=== PATIENT | male | born 1985 | race Caucasian/White ===

== ENCOUNTER → 2019-08-16 14:55 | Outpatient (POV) | payer SELFPAY | PROVIDERS: Visit Provider Dermatology | DX: Z00.00 Encounter for general adult medical examination without abnormal findings (principal) ==

== ENCOUNTER → 2021-01-11 10:51 | Outpatient (CLI) | payer BC, SELFPAY | PROVIDERS: PCP Family Medicine; Visit Provider Family Medicine | DX: R00.0 Tachycardia, unspecified (principal) | CPT/HCPCS: 93225; 93226 ==

== ENCOUNTER → 2021-02-07 13:35 | Outpatient (CLI) | payer BC, SELFPAY | PROVIDERS: PCP Family Medicine; Visit Provider Nurse Practitioner Family | DX: G47.33 Obstructive sleep apnea (adult) (pediatric) (principal); R40.0 Somnolence; R06.83 Snoring | CPT/HCPCS: G0399 ==

== ENCOUNTER → 2021-02-08 10:10 | Outpatient (CLI) | payer BC, SELFPAY ==
--- NOTE | 2021-02-08 10:11 | CA_ITS ---
APPROVED REPORT EXAM: Comprehensive 2D, Doppler, and color-flow Echocardiogram Corn Grinder: Lisandra Gould CRT Ht: 5 ft 10 in Wt: 303lbs BSA: 2.49 BP: 144/83 mmHg Indications: Shortness of Breath, Palpitations, Fatigue, ASTER, SVT 2D Dimensions LVOT 2.00 cm (M/F) 1.5-2.5 LA Volume 47.40 mL LA Volume Index 19.00 mL/m2 (M/F) 16-34 M-Mode Dimensions RVDd 2.31 cm (0.9-2.6) LA Diam 4.06 cm (1.9-4.0) LVDd 4.45 cm (3.5-5.7) Ao Diam 4.45 cm (2.0-3.7) LVDs 2.81 cm (3.5-5.7) IVSd 1.49 cm (0.6-1.1) PWd 0.82 cm (0.6-1.1) EF (Teich) 66.90% FS 36.90% EDV (Teich) 90.10 mL TAPSE 1.48 (<1.7) ESV (Teich) 29.80 mL LV Diastology E Decel Time 193.00 (160-240 msec) E/A Ratio 0.61 MED E' 5.40 (< 7 cm/sec) MED A' 8.40 cm/s E'/MED E' Ratio 6.39 (>14) LAT E' 11.20 (<10 cm/sec) LAT A' 13.40 cm/s E/LAT E' Ratio 3.08 (>14) Aortic Valve AO Peak GR. 4.30 mmHg Mitral Valve MV A Velocity 56.00 (40-130 cm/s) E/A Ratio 0.61 MV Decel. Time 193.00 (160-240 ms) Pulmonary Valve PV Peak Velocity 63.00 (50-150 cm/s) Tricuspid Valve TR P. Velocity 251.00 cm/s RAP Estimate 10.00 mmHg RVSP 35.30 mmHg Left Ventricle Left atrium is mildly enlarged, left ventricle is normal size, mild concentric left ventricular hypertrophy, visually estimated ejection fraction 50% with no regional wall motion abnormality, endocardial surfaces are poorly visualized, Doppler evidence of impaired LV relaxation seen. Right Ventricle Right atrium and right ventricle relatively normal size and function. Aortic Valve Aortic valve is minimally thickened and fibrosed, there is no aortic stenosis or aortic insufficiency. Mitral Valve Mitral valve grossly normal, there is trace mitral regurgitation. Tricuspid Valve Tricuspid grossly normal, there is trace tricuspid regurgitation, tricuspid regurgitation jet velocity is inadequate for calculation of the right ventricular systolic pressure. Pulmonic Valve Pulmonic valve is poorly visualized. Great Vessels Aortic root is normal size. Pericardium No significant pericardial effusion noted. Conclusion 1. Mildly enlarged left atrium, normal left ventricular size, mild concentric left ventricular hypertrophy, visually estimated ejection fraction 50% with no regional wall motion abnormality. Doppler evidence of impaired LV relaxation seen. 2. Trace mitral and tricuspid regurgitation. 3. No significant pericardial effusion noted. Electronically signed by : Chang Nava, 02/08/2021 13:32:31
== END ==
PROVIDERS: PCP Family Medicine; Visit Provider Nurse Practitioner Family
DX: R06.00 Dyspnea, unspecified (principal); R00.2 Palpitations; R00.0 Tachycardia, unspecified; R94.31 Abnormal electrocardiogram [ECG] [EKG]; G47.33 Obstructive sleep apnea (adult) (pediatric); R06.83 Snoring; R40.0 Somnolence
CPT/HCPCS: 93306

== ENCOUNTER 2023-09-10 15:39 | Emergency (ER) | payer BC, SELFPAY ==
[2023-09-10 15:55] VITALS: BP 122/66; PULSE 89; RESP 21; TEMP 36.6; O2SAT 96; BMI 41.5
[2023-09-10 16:23] VITALS: BP 122/66; PULSE 89; RESP 21; TEMP 36.6; O2SAT 96
--- NOTE | 2023-09-10 16:32 | EXP.UTC ---
Discharge Plan Disposition Patient Disposition: Home, Self-Care Condition: Good Prescriptions Prescriptions: New cephalexin 500 mg capsule 500 mg PO QID 7 Days Qty: 28 0RF No Action omeprazole 40 mg capsule,delayed release(DR/EC) 40 mg PO DAILY metoprolol succinate [Toprol XL] 50 mg tablet extended release 24 hr 100 mg PO DAILY Qty: 30 5RF cetirizine 10 mg tablet 10 mg PO DAILY Patient Comments: TAKE 1 TABLET BY MOUTH ONCE DAILY NEEDED FOR ALLERGIES bupropion HCl 150 mg tablet extended release 24 hr 150 mg PO DAILY Patient Comments: TAKE 1 TABLET BY MOUTH ONCE EVERY 24 HOURS Referrals Follow up/Referrals: Minnie Jain APRN [Primary Care Provider] - See instructions Activity Restrictions/Add. Instructions Additional Instructions/Restrictions: Take medication as prescribed Follow up with your Family Doctor if no improvement or any worsening of symptoms Return if needed Straight to ER if any life threatening symptoms Clinical Impressions Clinical Impression: Skin problem Instructions Patient Instructions: DI for Cellulitis -- Adult, Cephalexin Discharge ED Provider: Zahida Diallo [facility] General Stated complaint: bumps on legs Mode of Arrival: Ambulatory Source of Information: Patient Limitations: No Limitations Time Seen by Provider: 09/10/23 16:32 Description of Symptoms (Recalled from Triage Doc. by RN): PATIENT C/O REDDENED AREAS TO BILATERAL LEGS X 1 WEEK. HE STATES HE HAS A HISTORY OF THEM AND GETS TREATED FOR A BACTERIAL INFECTION HEENT Symptoms (Recalled from RN notes): No Resp Symptoms (Recalled from RN notes): No Skin Symptoms (Recalled from RN notes): Yes MS Symptoms (Recalled from RN notes): No Functional Status (Recalled from RN notes): WNL History of Present Illness Provider Complaint: Patient states that he has a red inflammed bump like area on his right lower leg and feels like one is starting on his left States that he use to get these frequently and had to get antibiotics to clear them up Related Data Home Medications Medication Instructions Recorded Confirmed omeprazole 40 mg capsule,delayed 40 mg PO DAILY 01/29/21 09/10/23 release bupropion HCl 150 mg 24 hr tablet, 150 mg PO DAILY 09/10/23 09/10/23 extended release cetirizine 10 mg tablet 10 mg PO DAILY 09/10/23 09/10/23 Previous Rx's Medication Instructions Recorded metoprolol succinate 50 mg 100 mg PO DAILY #30 tabs 02/14/21 tablet,extended release 24 hr (Toprol XL) cephalexin 500 mg capsule 500 mg PO QID 7 days #28 caps 09/10/23 Allergies Allergy/AdvReac Type Severity Reaction Status Date / Time No Known Allergies Allergy Verified 01/29/21 13:34 Worker's Comp Is this a Worker's Comp case?: No [facility] Disclaimer: The information contained in this section may have been updated after the patient was seen, as this information can be updated by other users. Medical History (Updated 09/10/23 @ 16:41 by Zahida Diallo APRN) Abnormal EKG Daytime somnolence Dyspnea ASTER (obstructive sleep apnea) Palpitations Snoring Tachycardia Social History Smoking Status: Former smoker alcohol intake: current current occupational status: employed and disabled Travel in the last 8 weeks: Inside the [place] ROS Obtained: Yes All systems reviewed & no additional complaints except as documented and Yes Systems reviewed as appropriate & no additional complaints except as documented Constitutional Constitutional: Reports system reviewed and no additional complaints, except as documented and Reports as per HPI ENT Ears, Nose, Mouth, and Throat: Reports system reviewed and no additional complaints, except as documented and Reports as per HPI Cardiovascular Cardiovascular: Reports system reviewed and no additional complaints, except as documented and Reports as per HPI Respiratory Respiratory: Reports system reviewed and no additional complaints,
== END 2023-09-10 16:45 | disposition home or self-care (01) ==
PROVIDERS: Emergency Provider Nurse Practitioner; PCP Nurse Practitioner Family
DX: L98.9 Disorder of the skin and subcutaneous tissue, unspecified (principal)
CPT/HCPCS: 99204; 99212; G0463

== ENCOUNTER 2023-10-30 16:15 | Outpatient (CLI) | payer BC, SELFPAY ==
[2023-10-30 16:50] LABS: Basophils # 0.1 K/mm3 (0-0.2); Basophils % 0.9 % (0.1-2.0); Eosinophils # 0.2 K/mm3 (0.0-0.4); Eosinophils % 1.8 % (0.1-12.0); Hemoglobin 16.6 g/dL (14.1-18.0); Lymphocytes # 2.7 K/mm3 (0.7-4.5); Lymphocytes % 28.2 % (10-50); Mean Corpuscular HGB Conc 36.9 g/dL (31.8-35.4); Mean Corpuscular Hemoglobin 32.1 pg (27.0-31.2); Mean Corpuscular Volume 87.1 fl (80-94); Mean Platelet Volume 10.2 fl (7.4-10.4); Monocytes # 0.5 K/mm3 (0.1-1.0); Platelet Count 204 K/mm3 (142-424); Red Blood Count 5.16 M/mm3 (4.60-6.20); White Blood Count 9.4 K/mm3 (4.8-10.8)
[2023-10-30 17:10] LABS: Chloride 103 mmol/L (98-107); Potassium 4.7 mmoL/L (3.5-5.1); Sodium 141 mmol/L (136-145)
[2023-10-30 17:13] LABS: Alanine Aminotransferase 58 U/L (12-78); Albumin Level 4.8 g/dl (3.5-5.0); Albumin/Globulin Ratio 1.8 (1.1-1.8); Alkaline Phosphatase 67 U/L (38-126); Anion Gap 11.7 mEq/L (5-15); Aspartate Amino Transferase 43 U/L (17-59); Bilirubin,Total 0.6 mg/dl (0.2-1.3); Blood Urea Nitrogen 20 mg/dl (9-20); Calcium 9.7 mg/dl (8.4-10.2); Carbon Dioxide 31 mmol/L (22.0-30.0); Estimated Glomerular Filt Rate 95 ml/min (>60); GFR (African American) 115 ML/MIN (>60); Globulin 2.6 g/dL (1.3-3.2); Glucose 110 mg/dl (74-100); Total Protein,Serum 7.4 g/dl (6.3-8.2)
[2023-10-30 17:20] LABS: C-Reactive Protein 1.3 mg/L (0-4)
[2023-10-30 17:22] LABS: Erythrocyte Sedimentation Rate 3 mm/hr (0-15)
[2023-10-30 17:45] LABS: Thyroid Stimulating Hormone 1.16 uIU/mL (0.465-4.68)
[2023-11-04 09:07] LABS: Antinuclear Antibodies (ANA) Negative
== END 2023-10-30 23:59 ==
LOC: LAB 16:17
PROVIDERS: PCP Nurse Practitioner Family; Visit Provider Nurse Practitioner Family
DX: R21 Rash and other nonspecific skin eruption (principal)
CPT/HCPCS: 36415; 80053; 84443; 85025; 85651; 86038; 86140